=== PATIENT | female | born 1965 ===

== ENCOUNTER 2017-07-31 06:11 | Day surgery (SDC) | payer BC ==
[~2017-07-31 06:11] MED LIST: Buffered Lidocaine 0.9% SYRIN* 5 ML/SYR SYRINGE INTRADERM ONE; Dexamethasone TAB* 4 MG PO ONE; DiMENhydriNATE IV* 50 MG/ML VIAL IV PUSH PRN; Famotidine IV* 10 MG/ML 2 ML (20 mg) IV ONE; Morphine INJ* 2 MG/ML 1 ML CARPUJECT IV PRN; Naloxone* 0.4 MG/ML 1 ML VIAL IV PRN; Ondansetron INJ* 2 MG/ML VIAL ONE; PROCHLORPERAZINE INJ 5 MG/ML 2 ML VIAL IV PRN; Scopolamine 1.5 mg* PATCH TRANSDERM PRN; fentaNYL* 50 MCG/ML 2 ML VIAL (100 MCG VIAL) IV PRN; oxyCODONE/Acetamin 5/325 MG* TAB PO PRN
[2017-07-31] MEDS ORDERED: Ondansetron ODT TAB* 4 MG ONE (06:19)
[2017-07-31] MEDS ORDERED: Famotidine IV* 10 MG/ML 2 ML (20 mg) ONE (06:19)
[2017-07-31] MEDS ORDERED: Dexamethasone TAB* 4 MG ONE (06:19)
[2017-07-31] MEDS ORDERED: ceFAZolin 2 GM PREMIX (*) 2 GM/50 ML BAG IVPB ONE (06:20)
[2017-07-31] MEDS ORDERED: Buffered Lidocaine 0.9% SYRIN* 5 ML/SYR SYRINGE ONE (06:20)
[2017-07-31] MEDS ORDERED: Lidocaine 1% INJ* 10 MG/ML 30 ML SDV ONE (06:54)
[2017-07-31] MEDS ORDERED: Bupivacaine 0.25% SDV* 30 ML ONE (06:54)
[2017-07-31] MEDS ORDERED: Atracurium* 10 MG/ML 10 ML VIAL ONE (07:15)
[2017-07-31] MEDS ORDERED: fentaNYL* 50 MCG/ML 2 ML VIAL (100 MCG VIAL) ONE (07:15)
[2017-07-31] MEDS ORDERED: Midazolam* 1 MG/ML 5 ML VIAL (5 MG) ONE (07:15)
[2017-07-31] MEDS ORDERED: Propofol* 10 MG/ML 20 ML BTL IV PUSH ONE (07:40)
[2017-07-31] MEDS ORDERED: PROCHLORPERAZINE INJ 5 MG/ML 2 ML VIAL ONE (07:40)
[2017-07-31] MEDS ORDERED: Lidocaine 2% PF * 5 ML VIAL ONE (07:40)
[2017-07-31] MEDS ORDERED: Neostigmine Methylsulfate* 1 MG/ML 10 ML VIAL (1 mg/ml) ONE (07:40)
[2017-07-31] MEDS ORDERED: Ketorolac INJ* 30 MG/ML 1 ML VIAL ONE (07:40)
[2017-07-31] MEDS ORDERED: Morphine INJ* 10 MG/ML 1 ML CARPUJECT ONE (07:40)
[2017-07-31] MEDS ORDERED: Glycopyrrolate IV* 0.2 MG/ML 1 ML VIAL ONE (07:40)
[2017-07-31] MEDS ORDERED: Labetalol IV* 5 MG/ML 20 ML VIAL ONE (08:47)
[2017-07-31] MEDS ORDERED: oxyCODONE/Acetamin 5/325 MG* TAB ONE (09:59)
[2017-07-31 10:51] VITALS: BP 115/74
--- NOTE | 2017-08-01 18:55 | OP ---
DATE OF OPERATION: 07/31/17 - [facility] DATE OF : 67. SURGEON: Yeyo Martinez M.D. SUGAR COATING HAND: Ni Dong NP ANESTHESIOLOGIST: Dr. Mosley ANESTHESIA: General with local. PRE-OP DIAGNOSES: 1. Cholelithiasis. 2. Right upper quadrant abdominal pain. POST-OP DIAGNOSES: 1. Cholelithiasis. 2. Right upper quadrant abdominal pain. OPERATIVE PROCEDURE: Laparoscopic cholecystectomy. ESTIMATED BLOOD LOSS: 100 mL. IV FLUIDS: 1 L of crystalloid. SPECIMENS: Gallbladder with contained gallstones. DRAINS: None. COMPLICATIONS: None. WOUND CLASSIFICATION: 2. FINDINGS: The gallbladder was full of large irregularly-shaped gallstones, and the wall was chronically thickened consistent with chronic calculus cholecystitis as a cause of her discomfort. DESCRIPTION OF PROCEDURE: Written informed consent was obtained, the abdomen was marked with indelible ink and preoperative antibiotics were administered. The patient was taken to the operating room, placed in the supine position. Sequential compression devices and a warming blanket were applied. General anesthesia was administered. Time-out verification was completed. Initially, a small transverse incision was made just above the umbilicus. The peritoneal cavity was entered under direct vision. A 12-mm blunt port was inserted and the abdomen was insufflated to 15 mmHg. Under direct vision, an 11 -mm epigastric port was placed and two 5-mm ports were placed in the right upper quadrant of the abdominal wall. The gallbladder was identified. It was somewhat thickened and distended and apparently packed with large gallstones. There were some omental adhesions, which were taken down sharply and also with a use of cautery as it allowed us to grasp the gallbladder and elevated up over the liver bed. There was some difficulty through some chronically thickened tissue along the medial and lateral aspects of the infundibulum. I was able to identify the cystic duct and artery as I entered the gallbladder. I did inadvertently lacerate the cystic artery during this dissection and there was some blood loss associated with this maneuver as I dissected the vessel free to be able to place well directed clips to prevent injury to any other structures in the area. Once I had identified the cystic duct and artery with some careful dissection, I was able to take significant part of the inferior part of the gallbladder off the liver bed using the critical view technique. The cystic duct and artery were then identified clearly and they were triply clipped and divided. The gallbladder was then removed from the liver bed with some difficulty as it was quite adherent to the gallbladder fossa, but I did not enter the gallbladder and we were able to place this in an EndoCatch bag, and brought it up through the umbilical incision. In order to remove the gallbladder from the abdominal cavity, I did open up the bag and the gallbladder, removed the large stones to permit it to pass through the umbilical incision. The liver bed was then irrigated and hemostasis was assured. There was no evidence of bile leak. The umbilical fascia was closed with interrupted 0 Vicryl suture. The skin at all 4 incisions was approximated with subcuticular 4 -0 Vicryl suture. Steri-Strips were applied. The patient tolerated the procedure well and was taken to the recovery room in stable condition. [id number] #: [id number] MTDD
[2017-08-03] MEDS ORDERED: Scopolamine PATCH Remove* 1 NOTE MISC PATCH OFF ONE (05:40)
== END 2017-07-31 11:05 | disposition home or self-care (01) ==
LOC: OR 06:11
PROVIDERS: ATTEND Surgery
DX: K80.10 Calculus of gallbladder with chronic cholecystitis without obstruction (principal); R10.11 Right upper quadrant pain
CPT/HCPCS: 81025; 88304; A9270-GY; J0690; J0780; J1885; J2250; J2270; J2704; J2710; J3010; J8540